=== PATIENT | male | born 1970 | race African-American/Black ===

== ENCOUNTER 2017-05-08 14:54 | Emergency (ER) | payer MEDICAID ==
[~2017-05-08] VITALS: Ht 180.3 cm; Wt 89.0 kg
[2017-05-08] MEDS ORDERED: KETOROLAC 60MG/2ML VIAL IM ONE (15:30)
[2017-05-08 15:39] VITALS: BP 130/77
== END 2017-05-08 15:44 | disposition home or self-care (01) ==
LOC: ER 14:54
DX: K04.7 Periapical abscess without sinus (principal); F17.210 Nicotine dependence, cigarettes, uncomplicated; Z88.0 Allergy status to penicillin; Z98.890 Other specified postprocedural states
CPT/HCPCS: 96372; 99283; J1885; Z7610